=== PATIENT | female | born 1955 | race Caucasian/White ===

== ENCOUNTER 2016-12-03 11:38 | Day surgery (SDC) | payer OTHER ==
[~2016-12-03] VITALS: Ht 167.6 cm; Wt 93.0 kg
[~2016-12-03 11:38] MED LIST: ASPI-628 PO; ATOR40TA69 PO; CHOL40003 PO; EZET10TA PO; OMEG1CAP5 PO; RAMI10CA PO; Sodium Chloride LOK Flush 10 mL Syringe IV PRN; UBID300C PO; fentaNYL-PF 50 mCg/mL 2 mL Inj IVPUSH PRN
[2016-12-03] MEDS ORDERED: ASPI-973 PO (13:08)
[2016-12-03] MEDS ORDERED: CITA20TA11 PO (13:08)
[2016-12-03 13:18] VITALS: BP 149/94; PULSE 75; RESP 14; O2SAT 96
[2016-12-03] MEDS: 0.9% Sodium Chloride 1,000 ML IV SCH ×2 (13:57→14:15)
[2016-12-03 14:22] VITALS: BP 149/84; PULSE 65; O2SAT 95
[2016-12-03 14:28] VITALS: BP 142/87; PULSE 68; RESP 14; O2SAT 94
[2016-12-03 14:38] VITALS: BP 158/87; PULSE 64; RESP 14; O2SAT 95
--- NOTE | 2016-12-04 00:47 | ENDO ---
[address] [address] ENDOSCOPY PROCEDURE PATIENT: AJIT ABRAHAM : 1955 MR#: [id number] ADMIT: 12/03/2016 JOB ID: [id number] DATE OF PROCEDURE: 12/03/2016 PRIMARY PROVIDER: APOLLO Morris. PROCEDURE: Colonoscopy with hot snare polypectomy and cold forceps polypectomy. INDICATIONS: A 61-year-old female who reports for colon cancer screening. EQUIPMENT: [employer]. SEDATION: 1. Versed 5 mg. 2. Fentanyl 100 mcg. COMPLICATIONS: None identified. BOWEL PREPARATION: Fair, adequate exam. PROCEDURE INFORMATION: After the risks and benefits were explained, written and verbal informed consent was obtained. The patient was brought into the endoscopy suite and placed into the left lateral decubitus position. Sedation was achieved using the above-stated medications with the addition of oxygen via nasal cannula. A digital rectal examination was accomplished. Mild internal hemorrhoids noted. The scope was introduced into the rectum and advanced under direct visualization to the level of the cecum, as identified by the appendiceal orifice and ileocecal valve. The scope was slowly withdrawn to carefully examine the mucosa for any defects or lesions. Retroflexed views were avoided in the rectum. Multiple direct views were made through the dentate line for exclusion of pathology. The colon was decompressed. The scope was removed from the patient tolerated the procedure well. FINDINGS: The patient had a small, perhaps 5-6 mm, polyp in the transverse removed with hot snare. There were some scattered old, what appeared to be healed erosive changes in the splenic flexure and in the region of the descending colon. One of these was biopsied for histopathology. No other significant pathology was appreciated throughout. ENDOSCOPIC DIAGNOSES: 1. Polyp. 2. Hemorrhoids. 3. Scattered erythematous foci (? healed erosions) status post biopsy. RECOMMENDATIONS: 1. Await histopathology. 2. Repeat colonoscopy in five years if this polyp has adenomatous features, 10 years if there are only hyperplastic features.
--- NOTE | 2016-12-05 14:25 | PATH ---
SURGICAL PATHOLOGY Attending Physician:Venessa Holloway CASE STATUS: Signed Out PATIENT NAME: AJIT ABRAHAM PID: [id number] : 1955 DATE COLLECTED:12/03/2016 00:00 SPECIMEN: 1: Colon, Biopsy 2: Colon, Biopsy CLINICAL HISTORY: COLON POLYP 1). TRANSVERSE COLON POLYP 2). SPLENIC FLEXURE COLON BIOPSY FINAL DIAGNOSIS: 1. Transverse Colon Polyp: Polypoid-shaped fragment of colon mucosa associated with marked mucosal lymphoid hyperplasia with associated focal surface epithelial erosion. Negative for dysplasia and malignancy. 2. Splenic Flexure Colon Biopsy: Fragment of normal appearing colon mucosa with prominent submucosal lymphoid hyperplasia. Negative for dysplasia and malignancy. ICD10: K63.5 GROSS DESCRIPTION: The specimen is received in two formalin filled containers labeled with the patient's name. 1). The specimen is sublabeled "transverse colon polyp" and consists of a 0.4 x 0.2 x 0.2 CM portion of tissue which is entirely submitted in cassette 1A. 2). The specimen is sublabeled "splenic flexure colon" and consists of a 0.2 x 0.2 x 0.2 CM portion of tissue which is entirely submitted in cassette 2A. 12/04/2016 [facility] ICD-9 CODES: CPT CODES: 1: 97651 2: 77410 Electronically Signed Out Casey Johnston MD [facility] Pathology [facility] [address], [place] [address] Technical component performed at [facility], [facility] [address], [place], [address]
== END 2016-12-03 23:59 | disposition home or self-care (01) ==
LOC: END 11:38
PROVIDERS: ATTEND Internal Medicine Gastroenterology
DX: Z12.11 Encounter for screening for malignant neoplasm of colon (principal); K63.5 Polyp of colon; K64.8 Other hemorrhoids; I25.10 Atherosclerotic heart disease of native coronary artery without angina pectoris; I10 Essential (primary) hypertension; E78.5 Hyperlipidemia, unspecified; K27.9 Peptic ulcer, site unspecified, unspecified as acute or chronic, without hemorrhage or perforation; G89.4 Chronic pain syndrome; F41.9 Anxiety disorder, unspecified; Z79.82 Long term (current) use of aspirin
CPT/HCPCS: 45380; 45385; 99153; G0500; J2250; J3010; J7030